=== PATIENT | male | born 1955 | race Caucasian/White ===

== ENCOUNTER 2019-07-16 19:05 | Emergency (ER) | payer BC ==
[~2019-07-16] VITALS: Ht 175.3 cm; Wt 81.6 kg
[2019-07-16 19:32] VITALS: BP_SYST 131
[2019-07-16] MEDS ORDERED: MORPHINE 4 MG/ML INJ. SYRINGE IM ONE (20:15)
[2019-07-16] MEDS ORDERED: DIPH-TET-PERTUS Vaccine 0.5 ML VIAL (ADACEL) I.M. ONE ×2 (20:45→20:52)
[2019-07-16] MEDS ORDERED: LIDOCAINE 1% 10 MG/ML, 20 ML MDV INJ ONE (22:00)
[2019-07-16] MEDS ORDERED: fentaNYL CITRATE/PF 100 MCG/2 ML AMP IM ONE (22:00)
[2019-07-16 23:30] VITALS: BP_SYST 131
== END 2019-07-16 23:30 | disposition home or self-care (01) ==
LOC: SED 19:05
DX: S42.401A Unspecified fracture of lower end of right humerus, initial encounter for closed fracture (principal); S01.511A Laceration without foreign body of lip, initial encounter; E11.9 Type 2 diabetes mellitus without complications; W01.0XXA Fall on same level from slipping, tripping and stumbling without subsequent striking against object, initial encounter; Y93.89 Activity, other specified; Y92.89 Other specified places as the place of occurrence of the external cause; Y99.8 Other external cause status
CPT/HCPCS: 12011; 29105; 73080; 73110; 96372; 99284; J2001; J2270; J3010; 90715